=== PATIENT | female | born 1935 | race Caucasian/White ===

== ENCOUNTER 2019-03-11 13:34 | Emergency (ER) | payer MEDICARE, BC ==
--- NOTE | 2019-03-11 13:58 | UC ---
General HPI - HPI Summary HPI Summary: 83 yo female presents with back pain. She tells me that she has a history of low back pain s/p injury and vertebral fracture in 2013. Over the last week she has had increased lower back pain. She mentions that she cannot take nsaids due to her other medications, therefore she takes tylenol that is not helping her pain. This pain is "exhausting" her and making her feel fatigued and overall weak. She also mentions that she feels nauseous and has a decreased appetite over the last few days. She is still eating breakfast, lunch, and dinner - but states it doesn't taste good. She denies headache, dizziness, recent illness, fever, cough, SOB, chest pain, abdominal pain, vomiting, dysuria. She states she has been constipated the last week, but has today had a small BM and feels a little better. - History of Current Complaint Chief Complaint: UCBackPain Stated Complaint: BODYACHES,NAUSEA Time Seen by Provider: 03/11/19 13:58 Hx Obtained From: Patient Onset/Duration: Gradual Onset Onset Severity: Moderate Current Severity: Moderate Pain Intensity: 8 - Allergy/Home Medications Allergies/Adverse Reactions: Allergies Allergy/AdvReac Type Severity Reaction Status Date / Time NSAIDS (Non-Steroidal Allergy See Comment Verified 03/11/19 13:54 Anti-Inflamma Home Medications: Home Medications Ascorbic Acid [Vitamin C] 1 tab PO ONCE PRN 03/11/19 [History Confirmed 03/11/19 ] Calcium Carb/Magnesium Hydrox [Rolaids Chewable Tablet] 1 tab PO TID PRN [History Confirmed 03/11/19] Denosumab [Prolia] 1 dose IM SEE INSTRUCTIONS 03/11/19 [History Confirmed ] Ibuprofen 2 tab PO ONCE PRN 03/11/19 [History Confirmed 03/11/19] PMH/Surg Hx/FS Hx/Imm Hx - Additional Past Medical History Additional PMH: Chronic low back pain Osteoporosis Urinary incontinence Other History Of: Negative For: Anticoagulant Therapy - Surgical History Surgical History: Yes Surgery Procedure, Year, and Place: Hysterectomy 1980. eye surgery glaucoma, cataracts - Family History Known Family History: Positive: Unknown - Social History Occupation: Retired Lives: With Family Alcohol Use: None Substance Use Type: None Smoking Status (MU): Former Smoker Review of Systems All Other Systems Reviewed And Are Negative: No Constitutional: Positive: Fatigue Skin: Positive: Negative Eyes: Positive: Negative ENT: Positive: Negative Respiratory: Positive: Negative Cardiovascular: Positive: Negative Gastrointestinal: Positive: Other - decreased appeite Genitourinary: Positive: Negative Neurovascular: Positive: Negative Musculoskeletal: Positive: Other: - Back pain Neurological: Positive: Negative Psychological: Positive: Negative Physical Exam - Summary Physical Exam Summary: GENERAL: NAD. WDWN. No pain distress. SKIN: No rashes, sores, or open wounds. HEENT: Head: AT/NC Eyes: PERRLA. EOM intact. Conjunctiva clear without inflammation or discharge. Ears: Hearing grossly normal. TMs intact, no bulging, erythema, or edema. Nose: Nasal mucosa pink and moist. NTTP maxillary and frontal sinus. Throat: Posterior oropharynx without exudates, erythema, or tonsillar enlargement. Uvula midline. NECK: Supple. Nontender. No lymphadenopathy. CHEST: CTAB. No r/r/w. No accessory muscle use. Breathing comfortably and in no distress. CV: RRR. Pulses intact. Brisk cap refill. ABDOMEN: Soft. NTTP. No distention or guarding., No organomegaly. No CVA tenderness. Bowel sounds present MSK: FROM and 5/5 strength throughout. No edema. TTP about lumbar spine and paraspinal muscles. No point tenderness. Negative SLR b/l. NEURO: A&Ox3. 3 word recall, remote, recent memory, ability to follow 2-step directions, and attention intact. CN: II: Peripheral pierson intact. Vision normal. III, IV, : EOMI. No nystagmus. PERRLA. V: Sensations intact and symmetric. Opens mouth and clenches teeth. VII: No facial asymmetry. Forehead wrinkles. Grins, shuts eyes, frowns, puffs cheeks. VIII: Hearing intact to finger rub. IX, X: Swallows and coughs. Uvula midline. XI: Shrugs shoulders. Turns head against resistance. XII: No tongue deviation [id number] are intact. Gait with normal base. Romberg: maintains balance, no pronator drift. Normal speech. No facial drooping. PSYCH: Age appropriate behavior. Triage Information Reviewed: Yes Vital Signs: Initial Vital Signs Temp 98.3 F 03/11/19 13:43 Pulse 100 03/11/19 13:43 Resp 18 03/11/19 13:43 BP 94/66 03/11/19 13:43 Pulse Ox 98 03/11/19 13:43 Laboratory Tests 03/11/19 15:11 POC Urine Color Dark yellow POC Urine Clarity Slightly cloudy POC Urine pH 6.5 POC Ur Specif [place] 1.020 POC Urine Protein Negative POC Ur Glucose (UA) Negative POC Urine Ketones Negative POC Urine Blood 1+ A POC Urine Nitrite Negative POC Urine Bilirubin Negative POC Urine Urobilinogen 0.2 POC U Leukocyte Esteras 1+ A Vital Signs Reviewed: Yes Diagnostics - EKG Summary of EKG Findings: Compared to 09/2015 - still with LBBB. New inverted p waves. No STEMI as read by Dr. Baugh Course/Dx - Course Course Of Treatment: UA with 1+ leuks and 1+ blood. Pt having no urinary symptoms at this time. EKG as above. Certainly her fatigue and weakness could be due to an underlying UTI - therefore will send her urine for culture and treat if needed, but I am hesitant to contribute all her symptoms to a borderline UTI and have recommended she go to the ER for further evaluation of her weakness. She was agreeable to this and will have her daughter drive her. - Diagnoses Provider Diagnosis: Weakness, Decreased appetite Discharge ED - Sign-Out/Discharge Documenting (check all that apply): Patient Departure All imaging exams completed and their final reports reviewed: No Studies - Discharge Plan Condition: Stable Disposition: HOME-RECOMMEND TO ED Referrals: Tatiana Yang MD [Primary Care Provider] - Additional Instructions: Please go to the ER for further evaluation of your weakness - Billing Disposition and Condition Condition: STABLE Disposition: Home-Recommend to ED
--- OUTSIDE RECORDS SUMMARY | 2019-03-11 14:14 | XMS REPORT | Summary of Care ---
:1935 Author Organization [facility] Address [address] [place] [address] Care Team Providers Name Role Phone Tatiana Yang MD Primary Care Provider Papito Rivera Unavailable Rome Rios MD Unavailable Unavailable Jenniffer Puga Unavailable Lior Murray Unavailable Reason for Referral MRI/CAT/PET Scan (Routine) Status Reason Specialty Diagnoses / Procedures Referred By Contact Referred To Contact Closed Radiology Diagnoses Cerebral aneurysm, nonruptured Sherrie Ramirez MD [facility] [address] Procedures CT HEAD ANGIOGRAPHY [place] [address] [place] [address] [address] [place] [address] Reason for Visit MRI/CAT/PET Scan (Routine) Status Reason Specialty Diagnoses / Procedures Referred By Contact Referred To Contact Closed Radiology Diagnoses Cerebral aneurysm, nonruptured Sherrie Ramirez MD [facility] [address] Procedures CT HEAD ANGIOGRAPHY [place] [address] [address] [place] [address] Encounter Details Date Type Department Care Team Description 01/30/2019 Hospital Encounter [facility] Out[facility] [address] [place] [id number] Allergies Active Allergy Reactions Severity Noted Date Comments Cephalexin Monohydrate Other Medium Keflex GI Reaction 09/29/2012 documented as of this encounter (statuses as of 02/01/2019) Medications Medication Sig Dispensed Refills Start Date End Date Status clonazePAM (KLONOPIN) Take 1 Tab by 60 Tab 0 10/24/2013 Active 0.5 MG Oral Tab mouth TWO TIMES DAILY NEEDED (anxiety). duloxetine (CYMBALTA) Take 90 mg by 0 Active 60 MG Oral CAPSULE mouth ENTERIC COATED DIRECTED. 30 mg PARTICLES am, 60 mg every evening denosumab (PROLIA) 60 Inject 60 mg 0 Active MG/ML Subcutaneous beneath the skin Solution Prefilled EVERY 6 MONTHS. Syringe documented as of this encounter (statuses as of 02/01/2019) Active Problems Problem Noted Date Cerebral aneurysm 09/19/2018 Closed compression fracture of L1 lumbar vertebra 08/18/2017 Depression with anxiety 10/18/2013 Lumbosacral spondylosis without myelopathy 03/25/2013 Lumbar facet arthropathy 03/25/2013 Low back pain 03/25/2013 BMI 30.0-30.9,adult 02/18/2013 Closed fracture of unspecified part of vertebral column without mention of 04/2012 spinal cord injury Diastolic dysfunction Ascending aorta dilatation Overview: mild. seen on TTE of 2017. referred to CT surgeon Osteoporosis documented as of this encounter (statuses as of 02/01/2019) Immunizations Name Administration Dates Next Due PNEUMOCOCCAL POLYSACCHARIDE VACCINE 08/08/2017 Pneumococcal Conjugate(13 Valent) 09/16/2015 TDAP Vaccine 01/17/2018 documented as of this encounter Social History Tobacco Use Types Packs/Day Years Used Date Current Every Day Smoker Cigarettes 0.5 25 Smokeless Tobacco: Never Used Alcohol Use Drinks/Week oz/Week Comments No Social Isolation Answer Date Recorded In a typical week, how many times do you More than three times a week 2018 talk on the phone with family, friends, or neighbors? How often do you get together with friends More than three times a week 08/15 or relatives? How often do you attend religious or More than 4 times per year 08/15/2018 rastafari services? Do you belong to any clubs or Yes 08/15/2018 organizations such as religious groups, unions, fraternal or athletic groups, or school groups? How often do you attend meetings of the 1 to 4 times per year 08/15/2018 clubs or organizations you belong to? Are you now , , , 08/15/2018 , never or living with a partner? Physical Activity Answer Date Recorded On average, how many days per week do you engage in moderate to 0 days 2018 strenuous exercise (like walking fast, running, jogging, dancing, swimming, biking, or other activities that cause a light or heavy sweat)? On average, how many minutes do you engage in exercise at this 0 min 2018 level? Stress Answer Date Recorded Do you feel stress - tense, restless, nervous, or anxious, Not at all 2018 or unable to sleep at night because your mind is troubled all the time - these days? Financial Resource Strain Answer Date Recorded How hard is it for you to pay for the very basics like Not hard at all 2018 food, housing, medical care, and heating? Intimate Partner Violence Answer Date Recorded Within the last year, have you been afraid of your partner or No 08/15/2018 ex-partner? Within the last year, have you been humiliated or emotionally No 08/15/2018 abused in other ways by your partner or ex-partner? Within the last year, have you been kicked, hit, slapped, or No 08/15/2018 otherwise physically hurt by your partner or ex-partner? Within the last year, have you been raped or forced to have any No 08/15/2018 kind of sexual activity by your partner or ex-partner? Food Insecurity Answer Date Recorded Within the past 12 months, you worried that your food would Never true 2018 run out before you got money to buy more. Within the past 12 months, the food you bought just didn't Never true 2018 last and you didn't have money to get more. Transportation Needs Answer Date Recorded In the past 12 months, has lack of transportation kept you from No 08/15/2018 medical appointments or from getting medications? In the past 12 months, has lack of transportation kept you from No 08/15/2018 meetings, work, or getting things needed for daily living? Sex Assigned at Date Recorded Not on file Job Start Date Occupation Industry Not on file Not on file Not on file Travel History Travel Start Travel End No recent travel history available. documented as of this encounter Last Filed Vital Signs Not on filedocumented in this encounter Plan of Treatment Date Type Specialty Care Team Description 03/11/2019 Lab Internal Medicine 03/18/2019 Office Visit Family Practice Tatiana Yang MD [address] [place] [address] 07/29/2019 Office Visit Cardiology Lior Murray MD [address] [place] [address] [phone] Name Type Priority Associated Diagnoses Date/Time CT HEAD ANGIOGRAPHY Imaging Routine Cerebral aneurysm, 01/30/2019 1:15 PM [place] nonruptured EDT Name Type Priority Associated Diagnoses Order Schedule CT HEAD ANGIOGRAPHY Imaging Routine Cerebral aneurysm, 1 Occurrences starting [place] nonruptured 01/30/2019 until 01/30/2019 Health Maintenance Due Date Last Done Comments ZOSTER IMMUNIZATION SERIES (1 10/21/1987 of 2) INFLUENZA VACCINE (#1) 2018 DEPRESSION SCREENING 08/16/2019 08/15/2018 FALL RISK ASSESSMENT 08/16/2019 08/15/2018, 08/15/2018 MEDICARE ANNUAL WELLNESS VISIT 08/16/2019 08/15/2018, 08/08/2017, 09/16/2015 PNEUMOCOCCAL 65+YRS Completed 08/08/2017, 09/16/2015 HPV IMMUNIZATION SERIES Aged Out No longer eligible based on patient's age to complete this topic MENINGOCOCCAL VACCINE IMM Aged Out No longer eligible based on patient's age to complete this topic documented as of this encounter Goals Goal Patient Goal Associated Recent Patient-Stated? Author Type Problems Progress Depression Depression No barbara Yang (PHQ-9) Tatiana Peña total score < 5 Note: This is an individualized treatment (depression) goal for Carlota Espana: Displayed above is your goal for a depression screening (PHQ-9) score that would indicate good control of your depression. Keep a regular sleep schedule Lifestyle No Tatiana Yang MD Note: This is an individualized lifestyle goal for Carlota Jovi: Please maintain a regular sleep schedule. This may help with some symptoms of depression. Take all prescribed medications as Self-management No Tatiana Yang MD directed Note: This is an individualized self-management goal for Carlota Jovi: Please take all prescribed medications as directed. 1. Do not skip doses. If you cannot afford your medications, talk with your doctor. 2. Use a pill reminder system such as a pill box if needed. Your pharmacist can help you with this. 3. Contact your Pharmacy 5 days before your medication runs out. If you cannot take your medications for any reasons, talk with your doctor. 4. Please bring all of your medication bottles and inhalers (or a list of all your medications/inhalers) with you to every visit. Potential barriers to meeting all of your care plan goals will continue to be addressed on an ongoing basis. documented as of this encounter Results Not on filedocumented in this encounter Visit Diagnoses Diagnosis Cerebral aneurysm, nonruptured documented in this encounter Administered Medications Medication Order MAR Action Action Date Dose Rate Site iohexol (OMNIPAQUE) 350 MG/ML Push 01/30/2019 1:10 PM EDT 100 mL injectable solution 100 mL 100 mL, Intravenous, NOW, 1 dose, 01/30/19 at 1310 documented in this encounter Insurance Payer Benefit Plan / Subscriber ID Effective Dates Phone Address Type Group MEDICARE MEDICARE PART A & xxxxxxxxxxx 2002-Present Medicare B [employer] xxxxxxxxxxxx 2016-Present [employer] Guarantor Name Account Type Relation to Date of Phone Billing Patient Address Carlota Espana Personal/Family [address] [phone] [place], [place] (Work) [id number] documented as of this encounter
--- OUTSIDE RECORDS SUMMARY | 2019-03-11 14:14 | XMS REPORT | Summary of Care ---
:1935 Author Organization [facility] Address [address] [facility] [place] [address] Care Team Providers Name Role Phone Tatiana Yang MD Primary Care Provider Papito Rivera Unavailable Rome Rios MD Unavailable Unavailable Jenniffer Puga Unavailable Lior Murray Unavailable Reason for Visit Reason Comments Follow Up 83 yr old female here for a 6 month f/u of Left MCA Aneursym. GABINO was 4.30.19. Encounter Details Date Type Department Care Team Description 01/30/2019 Office Visit [facility] Sherrie Ramirez MD Cerebral aneurysm, [address] nonruptured (Primary [place] [id number] [place] [address] Dx) [phone] Allergies Active Allergy Reactions Severity Noted Date Comments Cephalexin Monohydrate Other Medium Keflex GI Reaction 09/29/2012 documented as of this encounter (statuses as of 01/30/2019) Medications Medication Sig Dispensed Refills Start Date [...] as of this encounter (statuses as of 01/30/2019) Active Problems Problem Noted Date Cerebral aneurysm 09/19/2018 Closed compression fracture of L1 lumbar vertebra 08/18/2017 Depression with anxiety 10/18/2013 Lumbosacral spondylosis without myelopathy 03/25/2013 Lumbar facet arthropathy 03/25/2013 Low back pain 03/25/2013 BMI 30.0-30.9,adult 02/18/2013 Closed fracture of unspecified part of vertebral column without mention of 04/2012 spinal cord injury Diastolic dysfunction Ascending aorta dilatation Overview: mild. seen on TTE of 2016. referred to CT surgeon Osteoporosis documented as of this encounter (statuses as of 01/30/2019) Immunizations Name Administration Dates Next Due PNEUMOCOCCAL [...] or relatives? How often do you attend alevism or More than 4 times per year 08/15/2018 congregational services? Do you belong to any clubs or Yes 08/15/2018 organizations such as alevism groups, unions, fraternal or athletic groups, or [...] of this encounter Last Filed Vital Signs Vital Sign Reading Time Taken Comments Blood Pressure - - Pulse - - Temperature - - Respiratory Rate - - Oxygen Saturation - - Inhaled Oxygen Concentration - - Weight 76.9 kg (169 lb 8 oz) 01/30/2019 1:44 PM EDT Height 157.5 cm (5' 2") 01/30/2019 1:44 PM EDT Body Mass Index 31 01/30/2019 1:44 PM EDT documented in this encounter Progress Notes Sherrie Ramirez MD - 01/30/2019 1:40 PM EDT [facility] Patient: Carlota Espana : 1935 Date of Service: 01/30/2019 Chief Complaint Patient presents with Follow Up 83 yr old female here for a 6 month f/u of Left MCA Aneursym. GABINO was 4.30.19. HPI: This is a 83-y.o. woman who has a know 9mm left MCA aneurysm. She was last imaged about 6 months ago. In the intermim, she has stopped smoking. She doesn't feel well b/c of it. somedays are OK. No new MOE. No numbness/ tingling weakness. No problems with vision or speech. bP is under good control. Will take a baby asa. Past Medical History: Diagnosis Date Ascending aorta dilatation (HCC) mild. seen on TTE of 2016. referred to CT surgeon Depressive disorder, not elsewhere classified sees [facility] Diastolic dysfunction HILARY (generalized anxiety disorder) GERD (gastroesophageal reflux disease) Mental disorder Osteoporosis Past Surgical History: Procedure Laterality Date CATARACT EXTRACTION NEC PA ORBIT SURGERY PROC UNLISTED PA TOTAL ABDOM HYSTERECTOMY Social History Socioeconomic History Marital status: Spouse name: Not on file Number of children: 3 Years of education: Not on file Highest education level: Not on file Occupational History Not on file Social Needs Financial resource strain: Not hard at all Food insecurity: Worry: Never true Inability: Never true Transportation needs: Medical: No Non-medical: No Tobacco Use Smoking status: Current Every Day Smoker Packs/day: 0.50 Years: 25.00 Pack years: 12.50 Types: Cigarettes Smokeless tobacco: Never Used Substance and Sexual Activity Alcohol use: No Drug use: No Sexual activity: Never Partners: Male Lifestyle Physical activity: Days per week: 0 days Minutes per session: 0 min Stress: Not at all Relationships Social connections: Talks on phone: More than three times a week Gets together: More than three times a week Attends congregational service: More than 4 times per year Active member of club or organization: Yes Attends meetings of clubs or organizations: 1 to 4 times per year Relationship status: Intimate partner violence: Fear of current or ex partner: No Emotionally abused: No Physically abused: No Forced sexual activity: No Other Topics Concern Back Care Not Asked Bike Helmet Not Asked Blood Transfusions No Caffeine Concern Not Asked Exercise No Hobby Hazards Not Asked International Travel Not Asked Service No Occupational Exposure Not Asked Seat Belt Not Asked Self-Exams Not Asked Sleep Concern Not Asked Special Diet Not Asked Stress Concern Not Asked Weight Concern Not Asked Social History Narrative 06/2015 3 children that live in the area. Pets: dog/cat Lives alone in single story home Family History - non contributory to the cerebral aneurysm. Outpatient Medications as of 01/30/2019 Medication Sig Dispense Refill clonazePAM (KLONOPIN) 0.5 MG Oral Tab Take 1 Tab by mouth TWO TIMES DAILY NEEDED (anxiety). 60 Tab 0 denosumab (PROLIA) 60 MG/ML Subcutaneous Solution Prefilled Syringe Inject 60 mg beneath the skin EVERY 6 MONTHS. duloxetine (CYMBALTA) 60 MG Oral CAPSULE ENTERIC COATED PARTICLES Take 90 mg by mouth DIRECTED. 30 mg am, 60 mg every evening Facility-Administered Medications as of 01/30/2019 Medication Dose Route Frequency Provider Last Rate Last Dose [COMPLETED] iohexol (OMNIPAQUE) 350 MG/ML injectable solution 100 mL 100 mL Intravenous NOW Bernardino Aquino MD 100 mL at 01/30/19 1310 Allergies Allergen Reactions Cephalexin Monohydrate Other Keflex GI Reaction ROS: Constitutional : negative for - chills, fever, weight gain or weight loss Ophthalmic: negative for - blurry vision, visual disturbancy ENT: negative for - hearing change, hoarseness, voice change Heme/Lymph: negative for - blood clots, bruising or jaundice Respiratory: negative for: cough, shortness of breath, or wheezing Cardiovascular: negative for: chest pain or dyspnea on exertion Gastrointestinal: negative for: abdominal pain, change in bowel habits, or black or bloody stools Genito-Urinary: negative for: dysuria, trouble voiding, or hematuria Musculoskeletal: negative pain Endocrine: negative for - unexpected weight changes Neurological: negative for: TIA or stroke symptoms, bladder/bowel dysfunction Dermatological: negative for - skin lesion changes EXAM: Ht 5' 2" (1.575 m) | Wt 169 lb 8 oz (76.9 kg) | BMI 31.00 kg/m This is a well-developed well-nourished female in no acute distress. Mental: Awake and alert and oriented to self, place and date. Speech: Fluent, comprehension intact. CRN: Pupils - reactive 3, 4, 6 - EOM intact, no nystagmus 5 - V1 V2 V3 intact to light touch bilaterally 7 - face symmetrical 8 - hearing intact bilaterally to FR 10 - palate symmetrical 11 - traps and SCM 5/5 bilaterally 12 - tongue midline Motor exam: D B T WE WF G HF HE KE KF DF PF EHL R 5 5 5 5 5 5 5 5 5 5 5 5 5 L 5 5 5 5 5 5 5 5 5 5 5 5 5 Sensory exam: Intact to light touch Cerebellar: Normal Gait and Station: Normal Heart: Normal rate and rhythm Lungs: CTA bilaterally Imaging: I personally reviewed the CTA is stable Assessment and Plan: Ms Espana is an 83 yo woman with a known 9 mm left MCA aneurysm. She is not interested in having it fixed. She does not want, at this time, to reimage. If she is interested in getting a follow up image she will give me a call. If the aneurysm ruptures she is not interested in treatment. Author: Sherrie Ramirez MD 13:56 01/30/2019 documented in this encounter Plan of Treatment Date Type Specialty Care Team Description 03/11/2019 Lab Internal Medicine 03/18/2019 Office [facility] [address] [place] [id number] 07/29/2019 Office Visit Cardiology Lior Murray MD [facility] [place] [address] Health Maintenance Due Date Last Done Comments [...] Depression Depression No barbara Yang (PHQ-9) Tatiana Peña, total score < 5 Note: This is an individualized treatment (depression) goal for Carlota Espana: Displayed above is your goal for a depression screening (PHQ-9) score that would indicate good control of your depression. Keep a regular sleep schedule Lifestyle No Tatiana Yang MD Note: This is an individualized lifestyle goal for Carlota Espana: Please maintain a regular sleep schedule. This may help with some symptoms of depression. Take all prescribed medications as Self-management No Tatiana Yang MD directed Note: This is an individualized self-management goal for Carlota Espana: Please take all prescribed medications as directed. [...] encounter Visit Diagnoses Diagnosis Cerebral aneurysm, nonruptured - Primary documented in this encounter Insurance Payer Benefit Plan / Subscriber ID Effective Dates Phone Address Type Group MEDICARE MEDICARE PART A & xxxxxxxxxxx 2002-Present Medicare B [employer] xxxxxxxxxxxx 2016-Present [address] (Home[address] [phone] [place], [place] (Work) [id number] documented as of this encounter
[2019-03-11 15:45] VITALS: BP 129/72
--- NOTE | 2019-03-13 16:33 | UC ---
- Progress Note Progress Note: Urine culture positive. Please call to see how she is feeling. Does not appear she went to the ED as recommended. If has not seen PCP or being treated and still having symptoms - recommend starting keflex BID for UTI. Course/Dx - Diagnoses Provider Diagnoses: Weakness, Decreased appetite Discharge ED - Sign-Out/Discharge Documenting (check all that apply): Post-Discharge Follow Up All imaging exams completed and their final reports reviewed: No Studies - Discharge Plan Condition: Stable Disposition: HOME-RECOMMEND TO ED Referrals: Tatiana Yang MD [Primary Care Provider] - Additional Instructions: Please go to the ER for further evaluation of your weakness - Billing Disposition and Condition Condition: STABLE Disposition: Home-Recommend to ED
== END 2019-03-11 15:51 | disposition home health service (06) ==
LOC: UCEAST 13:34
DX: R53.1 Weakness (principal); R63.8 Other symptoms and signs concerning food and fluid intake; M54.5 Low back pain; G89.29 Other chronic pain; M81.0 Age-related osteoporosis without current pathological fracture; Z79.899 Other long term (current) drug therapy; Z88.6 Allergy status to analgesic agent
CPT/HCPCS: 81003; 87077; 87086; 87186; 93005; 99212; G0463